=== PATIENT | female | born 1980 | race Caucasian/White ===

== ENCOUNTER 2024-08-17 06:52 | Day surgery (SDC) | payer BC, OTHER ==
[2024-08-17] MEDS ORDERED: Propofol 200 MG/20 ML SDV IV ONE (06:53)
[2024-08-17] MEDS ORDERED: Ketamine 500 mg/10 ML MDV IV ONE (06:53)
[2024-08-17] MEDS ORDERED: Midazolam 1 MG/ML 2 ML SDV IV ONE (06:53)
[2024-08-17] MEDS ORDERED: Sodium Chloride 0.9% 10 ML Syringe FLUSH PRN (07:00)
[2024-08-17] MEDS ORDERED: Lactated Ringers 1,000 ML IV SCH (07:00)
[2024-08-17] MEDS: Lactated Ringers 1,000 ML IV PRN (07:52)
[2024-08-17] MEDS: Simethicone Drops 40 MG/0.6 ML 30 ML Bottle ONE (08:37)
== END 2024-08-17 09:42 | disposition home or self-care (01) ==
LOC: FB.SDS 06:52
PROVIDERS: ATTEND Surgery
DX: Z12.11 Encounter for screening for malignant neoplasm of colon (principal); I10 Essential (primary) hypertension; K21.9 Gastro-esophageal reflux disease without esophagitis; F41.9 Anxiety disorder, unspecified; Z87.891 Personal history of nicotine dependence
CPT/HCPCS: 81025; A9270-GY; J2250; J2704; J3490; J7120